=== PATIENT | male | born 1965 | race Caucasian/White ===

== ENCOUNTER → 2025-03-15 11:36 | Outpatient (REF) | payer SELFPAY | LOC: RAD 11:36 | PROVIDERS: ATTENDING PHYSICIAN Internal Medicine Cardiovascular Disease; FAMILY PHYSICIAN Dermatology | DX: I20.9 Angina pectoris, unspecified (principal) | CPT/HCPCS: 75571 ==

== ENCOUNTER 2025-05-07 22:52 | Emergency (ER) | payer OTHER, SELFPAY ==
[2025-05-07 23:00] VITALS: BP 147/84
[2025-05-07 23:17] LABS: Hematocrit 39.5 % (39.0-52.0); Hemoglobin 14.0 g/dL (13.0-18.0); Mean Corp Hgb Conc. 35.4 g/dL (33.0-37.0); Mean Corpuscular Volume 91.4 fL (80.0-94.0); Nucleated Red Blood Cells % 0 % (-); Platelet Count 205 10^3/uL (130-400); Red Cell Dist. Width 12.0 % (11.5-14.5)
[2025-05-07 23:44] LABS: ALT (SGPT) 18 U/L (0-50); AST (SGOT) 21 U/L (17-59); Albumin 4.6 g/dl (3.5-5.0); Alkaline Phosphatase 43 U/L (38-126); Blood Urea Nitrogen 14 mg/dl (9-20); Calcium 9.1 mg/dl (8.4-10.2); Carbon Dioxide 27 mmol/L (22-30); Chloride 106 mmol/L (98-107); Glucose 97 mg/dl (70-99); Lipase 199 U/L (23-300); Potassium 4.4 mmol/L (3.5-5.1); Sodium 139 mmol/L (135-145); Total Protein 7.1 g/dl (6.3-8.2); eGFR > 60.00
[2025-05-08 01:42] VITALS: BMI 27.3
[2025-05-08] MEDS: TYLENOL 1000 MG PO (02:46)
--- NOTE | 2025-05-08 03:11 | ED.GENMED ---
History of Present Illness
General
Chief Complaint: Abdominal Pain
Source: patient
Exam Limitations: none
Time Seen by Provider: 05/08/25 03:05
Nursing documentation reviewed up to this point in time: agreed with
History of Present Illness
History of Present Illness:
Note:
CHIEF COMPLAINT(S)
Abdominal pain for a few days.
HISTORY OF PRESENT ILLNESS
The patient is a 60-year-old male with a history of diverticulitis, presenting with abdominal pain persisting for a few days. The patient reports the pain as being diffuse and migratory around the abdomen. He describes the pain as 'violent stabbing
feelings' that come in waves, unlike the pulling sensation experienced during previous diverticulitis episodes. Notably, the pain radiates from the bladder through to the rectal area and sometimes the pelvic region. The patient denies any nausea,
vomiting, fever, dysuria, or hematuria but mentions a sensation of urinary urgency without significant output. Bowel movements are normal without blood. The intensity of stabbing pains occasionally induces nausea. The patient experiences pain that
may seem affected by his pre-existing back pain, but feels it primarily in the abdominal and pelvic regions, with occasional discomfort in the ribs. Eating does not appear to exacerbate the pain, and his dietary intake today included yogurt and
chicken soup. A colonoscopy two years ago was clear except for a minor bleeder treated with a staple. The patient suspects recent corn consumption might have exacerbated his symptoms. He denies chest pain, shortness of breath, diarrhea, sick
contacts, constipation. He denies heavy lifting, penile pain, groin pain, rectal bleeding, dark tarry stools.
PAST MEDICAL AND SURGICAL HISTORY
History of diverticulitis. The past colonoscopy revealed no polyps and was clear apart from a minor bleeder.
Patient denies other past medical history, is currently taking no medications
SOCIAL HISTORY
Denies smoking, alcohol, and drug use.
PHYSICAL EXAM
General: Alert, no acute distress.
Skin: Warm, dry with no lesions pertinent to current complaints.
Head: Normocephalic, atraumatic.
Neck: Supple, trachea midline.
Eyes, Ears, Nose, Mouth, and Throat: Oral mucosa moist.
Cardiovascular: Normal peripheral perfusion, no edema.
Respiratory: Respirations are non-labored.
Gastrointestinal: Abdominal examination reveals diffuse tenderness with intensity variation but primarily affecting the pelvic region. No noted rigidity or guarding.
Back: Normal range of motion, normal alignment with the patient reporting chronic back pain.
Musculoskeletal: Normal range of motion, normal strength. No CVA tenderness.
Neurological: Alert and oriented to person, place, time, and situation.
Psychiatric: Cooperative, appropriate mood and affect.
PLAN
1. Initiate intravenous fluids for hydration.
2. Administer Toradol (Ketorolac), a non-narcotic anti-inflammatory, for pain management.
3. Conduct a CT scan of the abdomen and pelvis to assess for diverticulitis, appendicitis, or nephrolithiasis.
4. Evaluate for potential need for antibiotics if infection is suspected
DIFFERENTIAL DIAGNOSIS
The Differential Diagnosis includes, in no particular order and is not limited to:
1. Diverticulitis
2. Appendicitis
3. Nephrolithiasis (Kidney stones)
4. Urinary tract infection
5. Hernia
6. Colonic obstruction
7. Gastroenteritis
8. Inflammatory bowel disease
9. Pelvic inflammatory disease
10. Abdominal aortic aneurysm
CHART REVIEW
01/03/23 12:57 Reviewed ER visit
MDM/DISPOSITION
The patient is a 60-year-old male with a history of diverticulitis, presenting with abdominal pain persisting for a few days. The patient reports the pain as being diffuse and migratory around the abdomen. On exam, is abdomen is soft minimally
tender no guarding. On chart review, he has a distant hx of crohns that has been in remission for some time and he is currently not on any active treatment for this. Toradol did improve his symptoms. LAbs unremarkable. Urinalysis normal. Lipase
normal. Suspect pain musculoskeletal in origin or related to potentially IBS has patient has reportedly had problems with before. Patient states that the discomfort right now is in the pelvis and he had one episode of discomfort with urination in
the ER. Again no signs of UTI in ER. Patient given referral for urology. Patient stable for discharge.
Past History
Past History
ED Past Medical History: HTN and Other
ED Past Surgical History: Orthopedic
Social History
Tobacco: Non-smoker
Alcohol: None
Drug: None
Personal: Single
Living: with family
Employment: Disabled
Family History
Family History: Other
Review of Systems
Review of Systems
All Other Systems: ROS reviewed and negative except as documented in HPI and ROS
Phy Exam
Physical Exam
Physical Exam:
see hpi
Course
Orders/Labs/Results
Orders:
Orders
05/07/25 23:08
Complete Blood Count/With Diff Urgent
Comprehensive Metabolic Panel Urgent
Lipase Urgent
05/08/25 02:43
Acetaminophen [Tylenol] 1,000 mg .ROUTE .STK-MED ONE
05/08/25 02:45
Acetaminophen [Tylenol] 1,000 mg PO NOW STA
05/08/25 03:22
CT Abd/pelvis W Iv Cont Urgent
Comment:
Reason For Exam: diffuse abdominal pain
0.9% Sodium Chloride 500 ml [Nss] 500 ml IV BOLUS
Ketorolac [Toradol] 15 mg IV NOW STA
05/08/25 03:32
Urinalysis Reflex To Culture Urgent
Date Specimen was Collected: 05/08/25
Time Specimen was Collected: 03:23
Abnormal Lab Results
05/07/25
23:08
RBC 4.32 L 10^6/uL
(4.70-6.10)
MCH 32.4 H pg
(27.0-31.0)
Monocytes % 9.8 H %
(1.7-9.3)
05/07/25 23:08
05/07/25 23:08
Vital Signs
Initial and Last Documented VS:
Initial Vital Signs
Temp Pulse Resp BP Pulse Ox
98.6 F 81 16 147/84 99
05/07/25 23:00 05/07/25 23:00 05/07/25 23:00 05/07/25 23:00 05/07/25 23:00
Last Documented Vital Signs
Temp Pulse Resp BP Pulse Ox
98.6 F 61 10 136/84 96
05/07/25 23:00 05/08/25 07:00 05/08/25 03:15 05/08/25 06:00 05/08/25 07:00
*Pulse Oximetry
SaO2: 96
Oxygen Mode of Delivery: Room air
Patient hypoxic: no
*Critical Care Note
Total Time (30-74mins, 75-104mins- exclusive of procedures): Not Applicable
ED Attending Note
-
Portions of this chart may have been created with voice recognition software.� Occasional wrong word or��sound alike� substitutions may have occurred due to the inherent limitations of voice recognition software.
Discharge Plan
Departure
Patient Disposition: Home (Routine Discharge)
Date of Disposition: 05/08/25
Time of Disposition: 07:04
Patient with high blood pressure during this ER visit?: Yes
Condition: Good
Discharge Problem:
Abdominal pain
Instructions: Abdominal Pain, BLOOD PRESSURE
Prescriptions:
No Action
erythromycin 1 APPLIC ointment
0.5 inch OPHTHALMIC TID Qty: 1 0RF
promethazine-codeine 5 ML syrup
5 ml PO Q4HPRN PRN (Reason: cough) Qty: 120 0RF
dicyclomine 20 mg tablet
20 mg PO QID PRN (Reason: abdominal pain) Qty: 30 0RF
Referrals:
Christiano Du MD [Active, Urology] - Call in 1-3 days for appt
Tico Lombardi MD [Family Provider, Internal Medicine]
Activity Restrictions/Additional Instructions:
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
PLEASE RETURN TO THE ER SHOULD YOU DEVELOP ACUTE WORSENING OF YOUR SYMPTOMS, FEVERS OR CHILLS, DARK TARRY STOOLS, RECTAL BLEEDING, INTRACTABLE NAUSEA OR VOMITING, CHEST PAIN OR SHORTNESS OF BREATH, OR ANY OTHER SIGNS OR SYMPTOMS WORSENING.
Interventions
Interventions:
*Risk Screen - Suicide Last Done: 05/07/25 23:00
*General Assessment Last Done: 05/08/25 01:42
*ED- Fall Risk Assessment Last Done: 05/08/25 01:42
*ED COVID-19 Vaccine History Last Done: 05/08/25 01:42
*Nursing Disposition Last Done: 05/08/25 07:17
BA-Nnzldh-Rrbzcirbnv Assessment Last Done: 05/08/25 01:42
Discharge Date and Time
Discharge Date/Time: 05/08/25 07:18
Print Language: UKRAINIAN
[2025-05-08] MEDS: TORADOL 15 MG IV (03:35)
[2025-05-08] MEDS: NSS 500 IV (03:35)
[2025-05-08 04:31] LABS: Urine Character Clear (Clear)
[2025-05-08 04:34] VITALS: BP 133/80
[2025-05-08 05:00] VITALS: BP 126/80
[2025-05-08 06:00] VITALS: BP 136/84
== END 2025-05-08 07:18 | disposition home or self-care (01) ==
LOC: EMR 22:52
PROVIDERS: Physician Assistant; EMERGENCY PHYSICIAN Student in an Organized Health Care Education/Training Program; FAMILY PHYSICIAN Internal Medicine
DX: R10.9 Unspecified abdominal pain (principal); I10 Essential (primary) hypertension; Z87.19 Personal history of other diseases of the digestive system
CPT/HCPCS: 96374; 96361; 99284; 74177; 80053; 81003; 83690; 85025; Q9967